=== PATIENT | female | born 1950 | race Caucasian/White ===

== ENCOUNTER 2017-01-15 11:49 | Inpatient (IN) | payer MEDICAID ==
[2017-01-15] MEDS ORDERED: Sodium Chloride 0.9% 1,000 ML IV ONE ×2 (11:59→16:53)
--- NOTE | 2017-01-15 12:21 | EDM.PDOC ---
ED HPI GENERAL MEDICAL PROBLEM - General Chief Complaint: Diabetic Complaint Stated Complaint: HIGH BLOOD SUGAR Time Seen by Provider: 01/15/17 11:51 Source of Information: Reports: Patient, Provider (Ashlyn Echevarria), RN Notes Reviewed History Limitations: Reports: Altered Mental Status - History of Present Illness INITIAL COMMENTS - FREE TEXT/NARRATIVE: Notified by Ashlyn Echevarria that she was sending the patient to the ED. The patient apparently was seen by Ms. Echevarria for the first time today, in order to establish care, however, there were communication difficulties, as the patient has psychiatric issues and has difficulty communicating. The patient is cared for by Dr. Hernández at [facility]. Ms. Echevarria and did some preliminary bloodwork, which demonstrated a blood glucose in the 600s, along with acidosis. The patient states that she has a history of depression and OCD, and takes Effexor nightly. She denies any other medical issues or medications. He states that she was thirsty yesterday, but not today, and denies a recent history of polyuria. She reports that she has been picking at her right second toe, to the point that the nail has been peeled off. The patient states that her last general physical examination was about 5-7 years ago. - Related Data Allergies Allergy/AdvReac Type Severity Reaction Status Date / Time No Known Allergies Allergy Verified 01/15/17 12:26 Home Meds: Home Meds Doxycycline [Vibramycin] 100 mg PO BID 01/15/17 [History] Venlafaxine [Effexor XR] 150 mg PO DAILY 01/15/17 [History] Past Medical History Psychiatric History: Reports: Depression, OCD Endocrine/Metabolic History: Reports: Obesity/BMI 30+ - Past Surgical History HEENT Surgical History: Reports: Tonsillectomy Social & Family History - Tobacco Use Smoking Status *Q: Never Smoker - Alcohol Use Alcohol Use History: Yes Alcohol Use Frequency: Socially - Recreational Drug Use Recreational Drug Use: No - Living Situation & Occupation Living situation: Reports: Single, Alone Occupation: Disabled (psychiatric) ED ROS GENERAL - Review of Systems Review Of Systems: See Below Constitutional: Reports: No Symptoms HEENT: Reports: No Symptoms Respiratory: Reports: No Symptoms Cardiovascular: Reports: No Symptoms Endocrine: Reports: No Symptoms GI/Abdominal: Reports: No Symptoms : Reports: No Symptoms Musculoskeletal: Reports: No Symptoms Skin: Reports: No Symptoms Neurological: Reports: No Symptoms Psychiatric: Reports: No Symptoms Hematologic/Lymphatic: Reports: No Symptoms Immunologic: Reports: No Symptoms ED EXAM GENERAL NO PERIP PULSE - Physical Exam Exam: See Below Exam Limited By: No Limitations General Appearance: Alert, WD/WN, No Apparent Distress Eye Exam: Bilateral Eye: Normal Inspection Ears: Normal External Exam, Hearing Grossly Normal Nose: Normal Inspection, No Blood Throat/Mouth: Normal Inspection, Normal Lips, Normal Voice, No Airway Compromise Head: Atraumatic, Normocephalic Neck: Normal Inspection, Full Range of Motion Respiratory/Chest: No Respiratory Distress, Lungs Clear, Normal Breath Sounds, No Accessory Muscle Use Cardiovascular: Normal Peripheral Pulses, Regular Rate, Rhythm, No Gallop, No JVD, No Murmur, No Rub GI/Abdominal: Normal Bowel Sounds, Soft, Non-Tender, No Organomegaly, No Distention, No Abnormal Bruit, No Mass, Other (Obese) (Female) Exam: Deferred Rectal (Female) Exam: Deferred Back Exam: Normal Inspection, Full Range of Motion, NT Extremities: Normal Range of Motion, No Pedal Edema, Normal Capillary Refill, Other (The toenail of the right second toe appears to be removed, and there appears to be an abrasion with crusty effusion to the distal tip of the toe. The proximal aspect of the toe is erythematous - infection is possible.) Neurological: Alert, CN II-XII Intact, No Motor/Sensory Deficits Psychiatric: Other (Somewhat manic. The patient speaks with a rapid, pressured speech. She is able to answer questions, but her thoughts drift.) Skin Exam: Warm, Dry, Intact, Normal Color, No Rash EKG INTERPRETATION EKG Date: 01/15/17 Time: 12:25 Rhythm: NSR Rate (Beats/Min): 97 [place]: Normal P-Wave: Present QRS: Normal ST-T: Normal QT: Normal Comparison: NA - No Prior EKG Course - Vital Signs Last Recorded V/S: Last Vital Signs Temp 37.1 C 01/15/17 12:05 Pulse 97 01/15/17 12:05 Resp BP 118/87 01/15/17 12:05 Pulse Ox 99 01/15/17 12:05 - Orders/Labs/Meds Orders: Active Orders 24 hr Category Date Time Status EKG Documentation Completion [RC] STAT Care 01/15/17 11:57 Active Chest 2V [CR] Stat Exams 01/15/17 11:57 Taken CULTURE URINE [RM] Stat Lab 01/15/17 14:50 Ordered Insulin Regular, Human [HumuLIN R] 100 unit Med 01/15/17 14:45 Active Sodium Chloride 0.9% [Normal Saline] 99 ml IV TITRATE Sodium Chloride 0.9% [Normal Saline] 1,000 ml Med 01/15/17 16:53 Active IV ONETIME Medication Orders Insulin Human Regular 100 unit (/ Sodium Chloride) 100 mls @ 0 mls/hr IV TITRATE CAMMIE; 0.1 UNITS/KG/HR PRN Reason: Protocol Last Admin: 01/15/17 15:09 Dose: 0.09 units/kg/hr, 9 mls/hr Sodium Chloride (Normal Saline) 1,000 mls @ 999 mls/hr IV ONETIME ONE Stop: 01/15/17 17:53 Labs: Laboratory Tests 01/15/17 01/15/17 01/15/17 Range/Units 12:33 12:54 12:54 WBC 10.67 H (3.98-10.04) K/mm3 RBC 4.89 (3.98-5.22) M/mm3 Hgb 14.9 (11.2-15.7) gm/L Hct 44.3 (34.1-44.9) % MCV 90.6 (79.4-94.8) fl MCH 30.5 (25.6-32.2) pg MCHC 33.6 (32.2-35.5) g/dl RDW Std Deviation 43.7 (36.4-46.3) fL Plt Count 310 (182-369) K/mm3 MPV 10.7 (9.4-12.3) fl Neutrophils % (Manual) 61 H (40-60) % Band Neutrophils % 0 (0-10) % Lymphocytes % (Manual) 34 (20-40) % Atypical Lymphs % 0 % Monocytes % (Manual) 2 (2-10) % Eosinophils % (Manual) 0 L (0.7-5.8) % Basophils % (Manual) 3 H (0.1-1.2) Platelet Estimate Adequate RBC Morph Comment Normal Puncture Site Lt radial ABG pH 7.41 (7.35-7.45) ABG pCO2 25.7 L (35.0-45.0) mmHg ABG pO2 86.0 (80.0-100.0) mmHg ABG HCO3 16.0 L (22.0-26.0) meq/L ABG O2 Saturation 97.8 H (96.0-97.0) % ABG Base Excess -6.6 L (-2-2.0) Marcus Test Positive A-a Gradient 16 mmHg O2 Delivery Device Room air FiO2 21.00 (21.00-100.00) % Sodium 132 L (136-145) mEq/L Potassium 4.1 (3.5-5.1) mEq/L Chloride 98 (98-107) mEq/L Carbon Dioxide 18 L (21-32) mEq/L Anion Gap 20.1 H (5-15) BUN 18 (7-18) mg/dL Creatinine 1.2 H (0.55-1.02) mg/dL Est Cr Clr Drug Dosing 46.06 mL/min Estimated GFR (MDRD) 45 (>60) mL/min BUN/Creatinine Ratio 15.0 (14-18) Glucose 514 H (80-115) mg/dL Lactic Acid (0.4-2.0) mmol/L Calcium 9.5 (8.5-10.1) mg/dL Magnesium 2.0 (1.8-2.4) mg/dl Total Bilirubin 0.3 (0.2-1.0) mg/dL AST 23 (15-37) U/L ALT 46 (14-59) U/L Alkaline Phosphatase 183 H (46-116) U/L Troponin I < 0.017 (0.00-0.056) ng/mL Total Protein 8.2 (6.4-8.2) g/dl Albumin 3.3 L (3.4-5.0) g/dl Globulin 4.9 gm/dL Albumin/Globulin Ratio 0.7 L (1-2) TSH 3rd Generation 3.579 (0.358-3.74) uIU/mL Urine Color (Yellow) Urine Appearance (Clear) Urine pH (5.0-8.0) Ur Specific [place] (1.005-1.030) Urine Protein (Negative) Urine Glucose (UA) (Negative) Urine Ketones (Negative) Urine Occult Blood (Negative) Urine Nitrite (Negative) Urine Bilirubin (Negative) Urine Urobilinogen (0.2-1.0) Ur Leukocyte Esterase (Negative) Urine RBC (0-5) /hpf Urine WBC (0-5) /hpf Ur Epithelial Cells (0-5) /hpf Urine Bacteria (FEW) /hpf Urine Mucus 01/15/17 01/15/17 Range/Units 12:54 14:50 WBC (3.98-10.04) K/mm3 RBC (3.98-5.22) M/mm3 Hgb (11.2-15.7) gm/L Hct (34.1-44.9) % MCV (79.4-94.8) fl MCH (25.6-32.2) pg MCHC (32.2-35.5) g/dl RDW Std Deviation (36.4-46.3) fL Plt Count (182-369) K/mm3 MPV (9.4-12.3) fl Neutrophils % (Manual) (40-60) % Band Neutrophils % (0-10) % Lymphocytes % (Manual) (20-40) % Atypical Lymphs % % Monocytes % (Manual) (2-10) % Eosinophils % (Manual) (0.7-5.8) % Basophils % (Manual) (0.1-1.2) Platelet Estimate RBC Morph Comment Puncture Site ABG pH (7.35-7.45) ABG pCO2 (35.0-45.0) mmHg ABG pO2 (80.0-100.0) mmHg ABG HCO3 (22.0-26.0) meq/L ABG O2 Saturation (96.0-97.0) % ABG Base Excess (-2-2.0) Marcus Test A-a Gradient mmHg O2 Delivery Device FiO2 (21.00-100.00) % Sodium (136-145) mEq/L Potassium (3.5-5.1) mEq/L Chloride (98-107) mEq/L Carbon Dioxide (21-32) mEq/L Anion Gap (5-15) BUN (7-18) mg/dL Creatinine (0.55-1.02) mg/dL Est Cr Clr Drug Dosing mL/min Estimated GFR (MDRD) (>60) mL/min BUN/Creatinine Ratio (14-18) Glucose (80-115) mg/dL Lactic Acid 3.3 H (0.4-2.0) mmol/L Calcium (8.5-10.1) mg/dL Magnesium (1.8-2.4) mg/dl Total Bilirubin (0.2-1.0) mg/dL AST (15-37) U/L ALT (14-59) U/L Alkaline Phosphatase (46-116) U/L Troponin I (0.00-0.056) ng/mL Total Protein (6.4-8.2) g/dl Albumin (3.4-5.0) g/dl Globulin gm/dL Albumin/Globulin Ratio (1-2) TSH 3rd Generation (0.358-3.74) uIU/mL Urine Color Yellow (Yellow) Urine Appearance Clear (Clear) Urine pH 5.5 (5.0-8.0) Ur Specific [place] 1.015 (1.005-1.030) Urine Protein Negative (Negative) Urine Glucose (UA) 2+ H (Negative) Urine Ketones Negative (Negative) Urine Occult Blood Trace-lysed H (Negative) Urine Nitrite Positive H (Negative) Urine Bilirubin Negative (Negative) Urine Urobilinogen 0.2 (0.2-1.0) Ur Leukocyte Esterase Negative (Negative) Urine RBC 5-10 H (0-5) /hpf Urine WBC 0-5 (0-5) /hpf Ur Epithelial Cells 0-5 (0-5) /hpf Urine Bacteria Moderate H (FEW) /hpf Urine Mucus Not Reportable Meds: Medications Generic Name Dose Route Start Last Admin Trade Name Freq PRN Reason Stop Dose Admin Insulin Human Regular 100 unit 100 mls @ 0 mls/hr 01/15/17 14:45 01/15/17 15: 09 / Sodium Chloride IV 0.09 units/kg/hr TITRATE CAMMIE 9 mls/hr Protocol Administration 0.1 UNITS/KG/HR Sodium Chloride 1,000 mls @ 999 mls/hr 01/15/17 16:53 Normal Saline IV 01/15/17 17:53 ONETIME ONE Discontinued Medications Generic Name Dose Route Start Last Admin Trade Name Freq PRN Reason Stop Dose Admin Sodium Chloride 1,000 mls @ 999 mls/hr 01/15/17 11:59 01/15/17 12:48 Normal Saline IV 01/15/17 12:59 999 mls/hr ONETIME ONE Administration Insulin Human Regular 5 unit 01/15/17 14:31 01/15/17 15:08 Humulin R SUBCUT 01/15/17 14:32 5 unit ONETIME STA Administration Protocol - Re-Assessments/Exams Free Text/Narrative Re-Assessment/Exam: 01/15/17 12:36 Two-view chest radiograph appears to be grossly normal. Cardiac silhouette is within normal limits. No pulmonary vascular congestion. No pleural effusions. No focal infiltrate. No pneumothorax. Formal read per the Radiologist pending. 01/15/17 13:37 An Accu-Chek was not ordered, as her blood sugar was in the 600s in Ms. Echevarria 's office, and the upper limit of our Accu-Chek machine is 400. 01/15/17 16:06 The patient's urinalysis is positive for nitrites, 5-10 RBCs, moderate bacteria , but 0-5 WBCs. This is not a clear-cut example of a UTI, however, I believe it would be prudent to treat for a UTI. A urine culture has been ordered, and I will start the patient on oral Bactrim, which should also cover a possible right second toe infection. Case discussed with Dr. Muñiz at 16:03. She is going to check the bed availability in the ICU and get back to us, otherwise, she agrees to admitting the patient. 01/15/17 16:53 An ICU bed is now available. Departure - Departure Time of Disposition: 16:53 Disposition: Admitted As Inpatient 68 Condition: Fair Clinical Impression: DKA (diabetic ketoacidoses), UTI (urinary tract infection), Toe infection - Discharge Information - My Orders Last 24 Hours: My Active Orders 01/15/17 11:57 EKG Documentation Completion [RC] STAT Chest 2V [CR] Stat 01/15/17 14:45 Insulin Regular, Human [HumuLIN R] 100 unit Sodium Chloride 0.9% [Normal Saline] 99 ml IV TITRATE 01/15/17 14:50 CULTURE URINE [RM] Stat 01/15/17 16:53 Sodium Chloride 0.9% [Normal Saline] 1,000 ml IV ONETIME - Assessment/Plan Last 24 Hours: My Active Orders 01/15/17 11:57 EKG Documentation Completion [RC] STAT Chest 2V [CR] Stat 01/15/17 14:45 Insulin Regular, Human [HumuLIN R] 100 unit Sodium Chloride 0.9% [Normal Saline] 99 ml IV TITRATE 01/15/17 14:50 CULTURE URINE [RM] Stat 01/15/17 16:53 Sodium Chloride 0.9% [Normal Saline] 1,000 ml IV ONETIME
[2017-01-15] MEDS ORDERED: Insulin Regular, Human 100 Units/ML 3 ML Vial SUBCUT STA (14:31)
[2017-01-15] MEDS ORDERED: Dextrose 5%-0.9% NaCl 1,000 ML IV SCH (18:45)
--- NOTE | 2017-01-15 19:14 | PCM.HP ---
H&P History of Present Illness - General Date of Service: 01/15/17 Admit Problem/Dx: Admission Diagnosis/Problem Admission Diagnosis/Problem Diabetic ketoacidosis Source of Information: Provider History Limitations: Reports: No Limitations - History of Present Illness Initial Comments - Free Text/Narative: 66 year old female with PMH of depression and OCD was sent from a clinic after her BS was checked, it was over 600 as reported by the clinic. She is not a known diabetic; the patient had been seen in the clinic for initial evaluation. The history is limited from the patient who does not directly answer questions. She is treated at [facility] for depression and OCD. Onset of Symptoms: Reports: Unknown/Unsure Symptom Onset Date: 01/15/17 Duration of Symptoms: Reports: Day(s):, Getting Worse Location: Reports: Generalized Quality: Reports: Same as Previous Episode Improves with: Reports: Medication Worsens with: Reports: None Associated Symptoms: Reports: No Other Symptoms - Related Data Allergies/Adverse Reactions: Allergies Allergy/AdvReac Type Severity Reaction Status Date / Time No Known Allergies Allergy Verified 01/15/17 12:26 Home Medications: Home Meds Doxycycline [Vibramycin] 100 mg PO BID 01/15/17 [History] Venlafaxine [Effexor XR] 150 mg PO DAILY 01/15/17 [History] Past Medical History Psychiatric History: Reports: Depression, OCD Endocrine/Metabolic History: Reports: Obesity/BMI 30+ - Past Surgical History HEENT Surgical History: Reports: Tonsillectomy Social & Family History - Tobacco Use Smoking Status *Q: Never Smoker - Caffeine Use Caffeine Use: Reports: Coffee, Tea - Recreational Drug Use Recreational Drug Use: No - Living Situation & Occupation Living situation: Reports: Single, Alone Occupation: Disabled (psychiatric) H&P Review of Systems - Review of Systems: Review Of Systems: See Below General: Reports: No Symptoms HEENT: Reports: No Symptoms Pulmonary: Reports: No Symptoms Cardiovascular: Reports: No Symptoms Gastrointestinal: Reports: No Symptoms Genitourinary: Reports: No Symptoms Musculoskeletal: Reports: Leg Pain, Foot Pain Skin: Reports: Change in Hair/Nails Psychiatric: Reports: Confusion Neurological: Reports: No Symptoms Hematologic/Lymphatic: Reports: No Symptoms Immunologic: Reports: No Symptoms Exam - Exam Exam: See Below - Vital Signs Vital Signs: Last Vital Signs Temp 37.1 C 01/15/17 17:45 Pulse 86 11/07/17 17:45 Resp 23 H 01/15/17 17:45 BP 131/81 01/15/17 17:45 Pulse Ox 99 01/15/17 17:45 Weight: 89.993 kg - Exam Quality Assessment: DVT Prophylaxis General: Alert, Oriented, Cooperative HEENT: Conjunctiva Clear, Nares Patent, Pupils Equal, Pupils Reactive, PERRLA Neck: Supple, Trachea Midline Lungs: Clear to Auscultation, Normal Respiratory Effort Cardiovascular: Regular Rate, Regular Rhythm GI/Abdominal Exam: Normal Bowel Sounds, Soft, Non-Tender, No Organomegaly, No Distention (Female) Exam: Deferred Rectal (Female) Exam: Deferred Back Exam: Normal Inspection Extremities: Normal Inspection Skin: Warm Neurological: Cranial Nerves Intact Neuro Extensive - Mental Status: Alert Neuro Extensive - Motor, Sensory, Reflexes: CN II-XII Intact Psychiatric: Alert, Normal Affect, Normal Mood - Patient Data Lab Results Last 24 hrs: Laboratory Results - last 24 hr 01/15/17 01/15/17 Range/Units 17:45 18:47 POC Glucose 191 H 132 H (80-115) mg/dL Result Diagrams: 01/15/17 12:54 01/15/17 19:20 *Q Meaningful Use (ADM) - VTE *Q VTE Criteria *Q: - Stroke *Q Stroke Criteria *Q: - AMI *Q AMI Criteria *Q: - Problem List (1) Hyperglycemia, unspecified SNOMED Code(s): 96942815 ICD Code: R73.9 - HYPERGLYCEMIA, UNSPECIFIED Status: Acute Current Visit : Yes (2) OCD (obsessive compulsive disorder) SNOMED Code(s): 882537093 ICD Code: F42.9 - OBSESSIVE-COMPULSIVE DISORDER, UNSPECIFIED Status: Acute Current Visit: Yes (3) Depression SNOMED Code(s): 80938336 ICD Code: F32.9 - MAJOR DEPRESSIVE DISORDER, SINGLE EPISODE, UNSPECIFIED Status: Acute Current Visit: Yes (4) Toe infection SNOMED Code(s): 298001500 ICD Code: L08.9 - LOCAL INFECTION OF THE SKIN AND SUBCUTANEOUS TISSUE, UNSP Status: Acute Current Visit: Yes (5) UTI (urinary tract infection) SNOMED Code(s): 96288316 ICD Code: N39.0 - URINARY TRACT INFECTION, SITE NOT SPECIFIED Status: Acute Current Visit: Yes Problem List Initiated/Reviewed/Updated: Yes Orders Last 24hrs: Active Orders 24 hr Category Date Time Status BMP [BASIC METABOLIC PANEL,BMP] [CHEM] Routine Lab 01/15/17 19:00 Ordered BMP [BASIC METABOLIC PANEL,BMP] [CHEM] Routine Lab 01/16/17 00:00 Ordered Dextrose 5%-0.9% NaCl [Dextrose 5%-Normal Saline] 1,000 Med 01/15/17 18:45 Active ml IV ASDIRECTED Insulin Regular, Human [HumuLIN R] 100 unit Med 01/15/17 17:49 Active Sodium Chloride 0.9% [Normal Saline] 99 ml IV TITRATE Venlafaxine [Effexor XR] Med 01/16/17 09:00 Active 150 mg PO DAILY Medication Orders Insulin Human Regular 100 unit (/ Sodium Chloride) 100 mls @ 0 mls/hr IV TITRATE CAMMIE; 0.1 UNITS/KG/HR PRN Reason: Protocol Last Titration: 01/15/17 18:47 Dose: 0.01 units/kg/hr, 1 mls/hr Admin: 01/15/17 17:56 Dose: 0.02 units/kg/hr, 2 mls/hr Dextrose/Sodium Chloride (Dextrose 5%-Normal Saline) 1,000 mls @ 150 mls/hr IV ASDIRECTED CAMMIE Venlafaxine HCl (Effexor Xr) 150 mg PO DAILY CAMMIE Assessment/Plan Comment:: Impression: DKA Query new onset diabetes mellitus Lipid status, unknown Psychiatric illness, unspecified; reportedly depression/OCD Query superficial skin infection, right great toe Query AUTI Plan: DKA protocol Rocephin DM education if possible Disposition, TBD. SW/PT/OT DVT/GI prophylaxis
[2017-01-15] MEDS ORDERED: LORazepam 2 MG/ML MDV IVPUSH PRN (19:19)
[2017-01-15] MEDS: Sodium Chloride 0.9% 1,000 ML IV SCH (20:03)
[2017-01-15] MEDS: cefTRIAXone 1 GM in Sodium Chloride 0.9% 100 ML IV SCH (20:03)
[2017-01-15] MEDS: Insulin Aspart 100 Units/ML 3 ML Pen SUBCUT SCH ×2 (20:03→21:16)
[2017-01-16] MEDS: Sodium Chloride 0.9% 1,000 ML IV SCH (06:16)
[2017-01-16] MEDS: Insulin Aspart 100 Units/ML 3 ML Pen SUBCUT SCH ×4 (06:24→21:48)
--- NOTE | 2017-01-16 07:38 | CR ---
Chest: Two views of the chest were obtained. Comparison: No previous study. Heart size and mediastinum are normal. Lungs are clear. Minimal degenerative spurring is seen within the spine. Impression: 1. Nothing acute is identified on two-view chest x-ray. Diagnostic code #2
[2017-01-16] MEDS: Venlafaxine 75 MG Cap.ER PO SCH (08:42)
[2017-01-16] MEDS ORDERED: Enoxaparin 30 MG/0.3 ML Syringe SUBCUT SCH (09:00)
--- NOTE | 2017-01-16 11:56 | PCM.PN ---
- General Info Date of Service: 01/16/17 Admission Dx/Problem (Free Text): Admission Diagnosis/Problem Admission Diagnosis/Problem Diabetic ketoacidosis Emily is seen this afternoon. Feeling "better". Denies complaints. No pain, SOB , CP, abd pain, n/v/d. She just ambulated multiple loops with nursing, tolerated well. CDE met with her earlier today which she found very helpful. Functional Status: Reports: Pain Controlled, Tolerating Diet, Ambulating, Urinating. Denies: New Symptoms - Review of Systems General: Reports: No Symptoms HEENT: Reports: No Symptoms Pulmonary: Reports: No Symptoms Cardiovascular: Reports: No Symptoms Gastrointestinal: Reports: No Symptoms Genitourinary: Reports: No Symptoms Musculoskeletal: Reports: No Symptoms Neurological: Reports: No Symptoms - Patient Data Vitals - Most Recent: Last Vital Signs Temp 97.3 F 01/16/17 09:00 Pulse 86 01/15/17 17:45 Resp 15 01/16/17 09:00 BP 141/79 H 01/16/17 09:00 Pulse Ox 97 01/16/17 09:00 Weight - Most Recent: 200 lb 3.2 oz I&O - Last 24 Hours: Intake & Output 01/15/17 01/16/17 01/16/17 22:59 06:59 14:59 Intake Total 2466 Output Total 600 Balance 1866 Lab Results Last 24 Hours: Laboratory Results - last 24 hr 01/15/17 01/15/17 01/15/17 Range/Units 17:45 18:47 19:20 WBC (3.98-10.04) K/mm3 RBC (3.98-5.22) M/mm3 Hgb (11.2-15.7) gm/L Hct (34.1-44.9) % MCV (79.4-94.8) fl MCH (25.6-32.2) pg MCHC (32.2-35.5) g/dl RDW Std Deviation (36.4-46.3) fL Plt Count (182-369) K/mm3 MPV (9.4-12.3) fl Neut % (Auto) (34.0-71.1) % Lymph % (Auto) (19.3-51.7) % Leake % (Auto) (4.7-12.5) % Eos % (Auto) (0.7-5.8) Baso % (Auto) (0.1-1.2) % Neut # (Auto) (1.56-6.13) K/mm3 Lymph # (Auto) (1.18-3.74) K/mm3 Leake # (Auto) (0.24-0.36) K/mm3 Eos # (Auto) (0.04-0.36) K/mm3 Baso # (Auto) (0.01-0.08) K/mm3 Sodium 141 (136-145) mEq/L Potassium 3.8 (3.5-5.1) mEq/L Chloride 108 H (98-107) mEq/L Carbon Dioxide 25 (21-32) mEq/L Anion Gap 11.8 (5-15) BUN 16 (7-18) mg/dL Creatinine 0.8 (0.55-1.02) mg/dL Est Cr Clr Drug Dosing 69.09 mL/min Estimated GFR (MDRD) > 60 (>60) mL/min BUN/Creatinine Ratio 20.0 H (14-18) Glucose 133 H (80-115) mg/dL POC Glucose 191 H 132 H (80-115) mg/dL Hemoglobin A1c (4.50-6.20) % Calcium 9.1 (8.5-10.1) mg/dL Magnesium (1.8-2.4) mg/dl Triglycerides (<150) mg/dL Cholesterol (<200) mg/dL LDL Cholesterol Direct (<100) mg/dL HDL Cholesterol (40-59) mg/dL 01/15/17 01/16/17 01/16/17 Range/Units 21:11 06:22 06:25 WBC 10.48 H (3.98-10.04) K/mm3 RBC 4.53 (3.98-5.22) M/mm3 Hgb 13.9 (11.2-15.7) gm/L Hct 41.7 (34.1-44.9) % MCV 92.1 (79.4-94.8) fl MCH 30.7 (25.6-32.2) pg MCHC 33.3 (32.2-35.5) g/dl RDW Std Deviation 45.4 (36.4-46.3) fL Plt Count 279 (182-369) K/mm3 MPV 10.8 (9.4-12.3) fl Neut % (Auto) 51.4 (34.0-71.1) % Lymph % (Auto) 41.6 (19.3-51.7) % Leake % (Auto) 5.5 (4.7-12.5) % Eos % (Auto) 1.1 (0.7-5.8) Baso % (Auto) 0.2 (0.1-1.2) % Neut # (Auto) 5.38 (1.56-6.13) K/mm3 Lymph # (Auto) 4.36 H (1.18-3.74) K/mm3 Leake # (Auto) 0.58 H (0.24-0.36) K/mm3 Eos # (Auto) 0.12 (0.04-0.36) K/mm3 Baso # (Auto) 0.02 (0.01-0.08) K/mm3 Sodium (136-145) mEq/L Potassium (3.5-5.1) mEq/L Chloride (98-107) mEq/L Carbon Dioxide (21-32) mEq/L Anion Gap (5-15) BUN (7-18) mg/dL Creatinine (0.55-1.02) mg/dL Est Cr Clr Drug Dosing mL/min Estimated GFR (MDRD) (>60) mL/min BUN/Creatinine Ratio (14-18) Glucose (80-115) mg/dL POC Glucose 157 H 189 H (80-115) mg/dL Hemoglobin A1c (4.50-6.20) % Calcium (8.5-10.1) mg/dL Magnesium (1.8-2.4) mg/dl Triglycerides (<150) mg/dL Cholesterol (<200) mg/dL LDL Cholesterol Direct (<100) mg/dL HDL Cholesterol (40-59) mg/dL 01/16/17 01/16/17 Range/Units 06:25 06:25 WBC (3.98-10.04) K/mm3 RBC (3.98-5.22) M/mm3 Hgb (11.2-15.7) gm/L Hct (34.1-44.9) % MCV (79.4-94.8) fl MCH (25.6-32.2) pg MCHC (32.2-35.5) g/dl RDW Std Deviation (36.4-46.3) fL Plt Count (182-369) K/mm3 MPV (9.4-12.3) fl Neut % (Auto) (34.0-71.1) % Lymph % (Auto) (19.3-51.7) % Leake % (Auto) (4.7-12.5) % Eos % (Auto) (0.7-5.8) Baso % (Auto) (0.1-1.2) % Neut # (Auto) (1.56-6.13) K/mm3 Lymph # (Auto) (1.18-3.74) K/mm3 Leake # (Auto) (0.24-0.36) K/mm3 Eos # (Auto) (0.04-0.36) K/mm3 Baso # (Auto) (0.01-0.08) K/mm3 Sodium 140 (136-145) mEq/L Potassium 3.6 (3.5-5.1) mEq/L Chloride 106 (98-107) mEq/L Carbon Dioxide 21 (21-32) mEq/L Anion Gap 16.6 H (5-15) BUN 16 (7-18) mg/dL Creatinine 0.7 (0.55-1.02) mg/dL Est Cr Clr Drug Dosing 78.95 mL/min Estimated GFR (MDRD) > 60 (>60) mL/min BUN/Creatinine Ratio 22.9 H (14-18) Glucose 171 H (80-115) mg/dL POC Glucose (80-115) mg/dL Hemoglobin A1c 12.30 H (4.50-6.20) % Calcium 8.5 (8.5-10.1) mg/dL Magnesium 1.9 (1.8-2.4) mg/dl Triglycerides 406 H (<150) mg/dL Cholesterol 269 H (<200) mg/dL LDL Cholesterol Direct 160 H* (<100) mg/dL HDL Cholesterol 34.0 L (40-59) mg/dL Med Orders - Current: Current Medications Enoxaparin Sodium (Lovenox) 40 mg SUBCUT DAILY [facility] Last Admin: 01/16/17 08:42 Dose: 40 mg Ceftriaxone Sodium 1 gm/ (Sodium Chloride) 100 mls @ 200 mls/hr IV Q24H [facility]MI[facility] Last Admin: 01/15/17 20:03 Dose: 200 mls/hr Insulin Aspart (Novolog) 0 unit SUBCUT QIDACANDBED [facility]MIE PRN Reason: Protocol Last Admin: 01/16/17 06:24 Dose: Not Given Lisinopril (Prinivil) 5 mg PO DAILY [facility] Lorazepam (Ativan) 1 mg IVPUSH BEDTIME PRN PRN Reason: Insomnia Metformin HCl (Glucophage) 500 mg PO BIDMEALS [facility]MI[facility] Simvastatin (Zocor) 10 mg PO BEDTIME [facility] Venlafaxine HCl (Effexor Xr) 150 mg PO DAILY [facility] Last Admin: 01/16/17 08:42 Dose: 150 mg Discontinued Medications Sodium Chloride (Normal Saline) 1,000 mls @ 999 mls/hr IV ONETIME ONE Stop: 01/15/17 12:59 Last Admin: 01/15/17 12:48 Dose: 999 mls/hr Insulin Human Regular 100 unit (/ Sodium Chloride) 100 mls @ 0 mls/hr IV TITRATE [facility]MIE; 0.1 UNITS/KG/HR PRN Reason: Protocol Last Admin: 01/15/17 15:09 Dose: 0.09 units/kg/hr, 9 mls/hr Sodium Chloride (Normal Saline) 1,000 mls @ 999 mls/hr IV ONETIME ONE Stop: 01/15/17 17:53 Last Admin: 01/15/17 17:25 Dose: 999 mls/hr Insulin Human Regular 100 unit (/ Sodium Chloride) 100 mls @ 0 mls/hr IV TITRATE CAMMIE; 0.1 UNITS/KG/HR PRN Reason: Protocol Last Titration: 01/15/17 18:47 Dose: 0.01 units/kg/hr, 1 mls/hr Dextrose/Sodium Chloride (Dextrose 5%-Normal Saline) 1,000 mls @ 150 mls/hr IV ASDIRECTED CAMMIE Last Admin: 01/15/17 18:40 Dose: 150 mls/hr Sodium Chloride (Normal Saline) 1,000 mls @ 150 mls/hr IV ASDIRECTED [facility]MIE Last Admin: 01/16/17 06:16 Dose: 150 mls/hr Insulin Human Regular (Humulin R) 5 unit SUBCUT ONETIME STA PRN Reason: Protocol Stop: 01/15/17 14:32 Last Admin: 01/15/17 15:08 Dose: 5 unit - Exam Quality Assessment: DVT Prophylaxis General: Alert, Oriented, Cooperative, No Acute Distress HEENT: Pupils Equal, EOMI, Mucous Membr. Moist/[place] Neck: Supple Lungs: Clear to Auscultation, Normal Respiratory Effort Cardiovascular: Regular Rate, Regular Rhythm GI/Abdominal Exam: Normal Bowel Sounds, Soft, Non-Tender (Female) Exam: Deferred Extremities: No Pedal Edema, Normal Capillary Refill Peripheral Pulses: 1+: Dorsalis Pedis (L), Dorsalis Pedis (R) Neurological: No New Focal Deficit Psy/Mental Status: Alert, Other (speech is with repetative tick at times every other word, making some conversation difficult to follow- this is her usual baseline. ) - Problem List & Annotations (1) DKA (diabetic ketoacidoses) SNOMED Code(s): 081402815 Code(s): E13.10 - OTH DIABETES MELLITUS WITH KETOACIDOSIS WITHOUT COMA Status: Resolved Priority: High Current Visit: Yes Qualifiers: Diabetes mellitus type: type 2 (2) Uncontrolled type 2 diabetes mellitus SNOMED Code(s): 08186833 Code(s): E11.65 - TYPE 2 DIABETES MELLITUS WITH HYPERGLYCEMIA Status: Acute Priority: High Current Visit: Yes Qualifiers: Diabetes mellitus complication status: with hyperglycemia Diabetes mellitus watermelon inspector insulin use: without watermelon inspector use Qualified Code(s): E11.65 - Type 2 diabetes mellitus with hyperglycemia (3) UTI (urinary tract infection) SNOMED Code(s): 43987399 Code(s): N39.0 - URINARY TRACT INFECTION, SITE NOT SPECIFIED Status: Acute Priority: High Current Visit: Yes Qualifiers: Urinary tract infection type: acute cystitis Hematuria presence: without hematuria Qualified Code(s): N30.00 - Acute cystitis without hematuria (4) Hyperlipidemia SNOMED Code(s): 51910445 Code(s): E78.5 - HYPERLIPIDEMIA, UNSPECIFIED Status: Acute Priority: High Current Visit: Yes Qualifiers: Hyperlipidemia type: pure hyperglyceridemia Qualified Code(s): E78.1 - Pure hyperglyceridemia (5) Depression SNOMED Code(s): 15497632 Code(s): F32.9 - MAJOR DEPRESSIVE DISORDER, SINGLE EPISODE, UNSPECIFIED Status: Chronic Priority: Medium Current Visit: Yes Qualifiers: Depression Type: unspecified Qualified Code(s): F32.9 - Major depressive disorder, single episode, unspecified (6) OCD (obsessive compulsive disorder) SNOMED Code(s): 386109650 Code(s): F42.9 - OBSESSIVE-COMPULSIVE DISORDER, UNSPECIFIED Status: Chronic Priority: Medium Current Visit: No Qualifiers: Obsessive-compulsive disorder type: unspecified Qualified Code(s): F42.9 - Obsessive-compulsive disorder, unspecified - Problem List Review Problem List Initiated/Reviewed/Updated: Yes - My Orders Last 24 Hours: My Active Orders 01/16/17 07:23 Admission Status [Patient Status] [ADT] Routine 01/16/17 11:43 Ambulate [RC] QID 01/16/17 11:45 Aspirin 81 mg PO DAILY Lisinopril [Prinivil] 5 mg PO DAILY Simvastatin [Zocor] 10 mg PO BEDTIME metFORMIN [Glucophage] 500 mg PO BIDMEALS - Plan Plan:: I/P: DKA- resolved; in setting of newly dx type 2 DM, uncontrolled -Off of insulin drip, eating and tolerating meals, fluids DC'd -A1C 12.3 -CDE -Accucheck QID/AC&HS, SSI coverage -Metformin BID with titration to maximum dosing of 1,000mg BID -Statin, ACEI, baby ASA -F/up with PCP and CDE within one week of discharge Hyperlipidemia -Start Statin QHS UTI -GNR per UC, no ID or sensitivity as of yet- awaiting results -Cont Rocephin IV QD Chronic: Longstanding mental illness- reported depression/OCD- Cont home meds -Patient has field case manager, Delgado, that will help with meds and appointments after discharge Other: DVT prophylax/GI prophylax CM/SW for assist with DC planning Ambulate QID Likely DC tomorrow if stable and continues to do well. PCP is RICH Ramirez at [facility] in [place]. Patient is Full Code status.
[2017-01-16] MEDS: metFORMIN 500 MG Tab PO SCH ×2 (12:14→17:20)
[2017-01-16] MEDS: Lisinopril 5 MG Tab PO SCH (12:14)
[2017-01-16] MEDS: Famotidine 20 MG Tab PO SCH (12:14)
[2017-01-16] MEDS: Aspirin 81 MG Tab.Chew PO SCH (12:15)
[2017-01-16] MEDS: cefTRIAXone 1 GM in Sodium Chloride 0.9% 100 ML IV SCH (19:27)
[2017-01-16] MEDS ORDERED: Simvastatin 10 MG Tab PO SCH (21:00)
--- NOTE | 2017-01-17 07:02 | PCM.DCSUM1 ---
Discharge Summary - Hospital Course Free Text/Narrative:: 66 year old female with PMH of depression and OCD was sent from a clinic to ED after her BS was checked, it was over 600 as reported by the clinic. She is not a known diabetic; the patient had been seen in the clinic for initial evaluation with RICH Ramirez, for suspected diabetes, increased thirst. The history is limited from the patient who does not directly answer questions. She is treated at [facility] for depression and OCD. She has not seen any other medical provider, aside from Dr. Hernández for mental health issues, in 7-10 years. She does have a caser in through [facility], who is very involved with her care. ED evaluation found patient to be in DKA. Hospitalist service was consulted for admission. She was initially started on insulin drip and DKA protocol in the ICU. The following day AG had closed and DKA resolved. She was eating and drinking with no return of DKA state. She was maintained on s/s novolog, metformin was started. She was seen by CDE and automatic profile shaper operator. She was tolerating meals well, ambulating. She is not going to be able to manage insulin at this time; will start just metformin and have her follow with SELENE Santoyo with [facility] here in [place]. She is very agreeable to this. She was also started on ASA for CV protection with DM, Lisinopril 5mg for renal protection and simvastatin for HLD. A1C was found to be 12.3 She will be discharged home today with [employer] Officer[employer] to assist with medications and appointments. - Discharge Data Discharge Date: 01/17/17 Discharge Disposition: Home, Self-Care 01 Condition: Good - Discharge Diagnosis/Problem(s) (1) DKA (diabetic ketoacidoses) SNOMED Code(s): 536668465 ICD Code: E13.10 - OTH DIABETES MELLITUS WITH KETOACIDOSIS WITHOUT COMA Status: Resolved Priority: High Current Visit: Yes Qualifiers: Diabetes mellitus type: type 2 (2) Uncontrolled type 2 diabetes mellitus SNOMED Code(s): 09808995 ICD Code: E11.65 - TYPE 2 DIABETES MELLITUS WITH HYPERGLYCEMIA Status: Acute Priority: High Current Visit: Yes Qualifiers: Diabetes mellitus complication status: with hyperglycemia Diabetes mellitus shelter insulin use: without terminal supervisor use Qualified Code(s): E11.65 - Type 2 diabetes mellitus with hyperglycemia (3) UTI (urinary tract infection) SNOMED Code(s): 84418099 ICD Code: N39.0 - URINARY TRACT INFECTION, SITE NOT SPECIFIED Status: Acute Priority: High Current Visit: Yes Qualifiers: Urinary tract infection type: acute cystitis Hematuria presence: without hematuria Qualified Code(s): N30.00 - Acute cystitis without hematuria (4) Hyperlipidemia SNOMED Code(s): 93477539 ICD Code: E78.5 - HYPERLIPIDEMIA, UNSPECIFIED Status: Acute Priority: High Current Visit: Yes Qualifiers: Hyperlipidemia type: pure hyperglyceridemia Qualified Code(s): E78.1 - Pure hyperglyceridemia (5) Depression SNOMED Code(s): 54557323 ICD Code: F32.9 - MAJOR DEPRESSIVE DISORDER, SINGLE EPISODE, UNSPECIFIED Status: Chronic Priority: Medium Current Visit: Yes Qualifiers: Depression Type: unspecified Qualified Code(s): F32.9 - Major depressive disorder, single episode, unspecified (6) OCD (obsessive compulsive disorder) SNOMED Code(s): 981264984 ICD Code: F42.9 - OBSESSIVE-COMPULSIVE DISORDER, UNSPECIFIED Status: Chronic Priority: Medium Current Visit: No Qualifiers: Obsessive-compulsive disorder type: unspecified Qualified Code(s): F42.9 - Obsessive-compulsive disorder, unspecified - Patient Summary/Data Operative Procedure(s) Performed: None Complications: None Consults: Consultations 01/15/17 19:20 Consult to Occupational Therapy [OT Evaluation and Treatment] [CONS] Routine Consult to Physical Therapy [PT Evaluation and Treatment] [CONS] Routine 01/15/17 19:21 Consult to Derivatives Trader [Consult to Diabetic Nurse Specialist] [CONS] Routine 01/16/17 08:00 Consult to Inspector Tool [CONS] Routine Labs Pending at D/C: None Recommended Follow-up Testing/Procedures: Patient DC instructions: Follow up with RICH Ramirez and Brittney Engel, Engine Repair Supervisor within one week of discharge Check your blood sugars before meals and at bedtime, record and bring record with you to above follow ups and to all doctor visits Exercise, 150 minutes per week total is goal Push fluids, lots of water, avoid any sugary drinks Diabetic diet Take all medications as prescribed Planned Operative Procedure(s) after DC: None Hospital Course: As above - Patient Instructions Diet: Heart Healthy Diet, Drink 8-10+ Glasses/Day, Diabetic Diet Activity: As Tolerated (exercise 150min per week) Driving: Do Not Drive Showering/Bathing: May Shower Notify Provider of: Fever, Increased Pain, Nausea and/or Vomiting - Discharge Plan Prescriptions/Med Rec: Aspirin 81 mg PO DAILY #30 tab.chew Cephalexin [Keflex] 500 mg PO TID #15 capsule Famotidine [Pepcid] 20 mg PO DAILY #30 tablet Lisinopril [Prinivil] 5 mg PO DAILY #30 tablet metFORMIN [Glucophage] 1,000 mg PO BIDMEALS #60 tablet Simvastatin [Zocor] 10 mg PO BEDTIME #30 tablet Home Medications: Home Meds Venlafaxine [Effexor XR] 150 mg PO DAILY 01/15/17 [History] Aspirin 81 mg PO DAILY #30 tab.chew 01/17/17 [Rx] Cephalexin [Keflex] 500 mg PO TID #15 capsule 01/17/17 [Rx] Famotidine [Pepcid] 20 mg PO DAILY #30 tablet 01/17/17 [Rx] Lisinopril [Prinivil] 5 mg PO DAILY #30 tablet 01/17/17 [Rx] Simvastatin [Zocor] 10 mg PO BEDTIME #30 tablet 01/17/17 [Rx] metFORMIN [Glucophage] 1,000 mg PO BIDMEALS #60 tablet 01/17/17 [Rx] Patient Handouts: Type 2 Diabetes Mellitus, Adult, Cholesterol, [id number]-[id number], Diabetes and Foot Care, Heart Disease Prevention, Diabetes and Sick Day Management, Hypoglycemia, Hyperglycemia, [id number], Food Choices to Lower Your Triglycerides, Diabetes Mellitus and Food Referrals: Maria Luisa Echevarria FRAUD EXAMINER [Primary Care Provider] - - Discharge Summary/Plan Comment DC Time >30 min.: Yes (45 min) - General Info Date of Service: 01/17/17 Admission Dx/Problem (Free Text: Admission Diagnosis/Problem Admission Diagnosis/Problem Diabetic ketoacidosis Emily is seen this this morning. Slept well. No complaints this morning. No pain, SOB, CP, abd pain, n/v/d. She is up and ambulatory, eating and tolerating meals well. Blood sugars are stable. Plans for DC home today. Functional Status: Reports: Pain Controlled, Tolerating Diet, Ambulating, Urinating. Denies: New Symptoms - Review of Systems General: Reports: No Symptoms HEENT: Reports: No Symptoms Pulmonary: Reports: No Symptoms Cardiovascular: Reports: No Symptoms Gastrointestinal: Reports: No Symptoms Genitourinary: Reports: No Symptoms Musculoskeletal: Reports: No Symptoms Neurological: Reports: No Symptoms - Patient Data Vitals - Most Recent: Last Vital Signs Temp 98.8 F 01/17/17 03:56 Pulse 83 01/17/17 03:56 Resp 14 01/17/17 03:56 BP 138/72 01/17/17 03:56 Pulse Ox 98 01/17/17 03:56 Weight - Most Recent: 200 lb 3.2 oz I&O - Last 24 hours: Intake & Output 01/16/17 01/16/17 01/17/17 14:59 22:59 06:59 Intake Total 240 620 500 Balance 240 620 500 Lab Results - Last 24 hrs: Laboratory Results - last 24 hr 01/16/17 01/16/17 01/16/17 Range/Units 06:25 06:25 06:25 WBC 10.48 H (3.98-10.04) K/mm3 RBC 4.53 (3.98-5.22) M/mm3 Hgb 13.9 (11.2-15.7) gm/L Hct 41.7 (34.1-44.9) % MCV 92.1 (79.4-94.8) fl MCH 30.7 (25.6-32.2) pg MCHC 33.3 (32.2-35.5) g/dl RDW Std Deviation 45.4 (36.4-46.3) fL Plt Count 279 (182-369) K/mm3 MPV 10.8 (9.4-12.3) fl Neut % (Auto) 51.4 (34.0-71.1) % Lymph % (Auto) 41.6 (19.3-51.7) % Hughes % (Auto) 5.5 (4.7-12.5) % Eos % (Auto) 1.1 (0.7-5.8) Baso % (Auto) 0.2 (0.1-1.2) % Neut # (Auto) 5.38 (1.56-6.13) K/mm3 Lymph # (Auto) 4.36 H (1.18-3.74) K/mm3 Hughes # (Auto) 0.58 H (0.24-0.36) K/mm3 Eos # (Auto) 0.12 (0.04-0.36) K/mm3 Baso # (Auto) 0.02 (0.01-0.08) K/mm3 Sodium 140 (136-145) mEq/L Potassium 3.6 (3.5-5.1) mEq/L Chloride 106 (98-107) mEq/L Carbon Dioxide 21 (21-32) mEq/L Anion Gap 16.6 H (5-15) BUN 16 (7-18) mg/dL Creatinine 0.7 (0.55-1.02) mg/dL Est Cr Clr Drug Dosing 78.95 mL/min Estimated GFR (MDRD) > 60 (>60) mL/min BUN/Creatinine Ratio 22.9 H (14-18) Glucose 171 H (80-115) mg/dL POC Glucose (80-115) mg/dL Hemoglobin A1c 12.30 H (4.50-6.20) % Calcium 8.5 (8.5-10.1) mg/dL Magnesium 1.9 (1.8-2.4) mg/dl Triglycerides 406 H (<150) mg/dL Cholesterol 269 H (<200) mg/dL LDL Cholesterol Direct 160 H* (<100) mg/dL HDL Cholesterol 34.0 L (40-59) mg/dL 01/16/17 01/16/17 01/17/17 Range/Units 17:01 21:28 06:07 WBC 8.14 (3.98-10.04) K/mm3 RBC 4.47 (3.98-5.22) M/mm3 Hgb 13.9 (11.2-15.7) gm/L Hct 41.4 (34.1-44.9) % MCV 92.6 (79.4-94.8) fl MCH 31.1 (25.6-32.2) pg MCHC 33.6 (32.2-35.5) g/dl RDW Std Deviation 44.8 (36.4-46.3) fL Plt Count 252 (182-369) K/mm3 MPV 10.6 (9.4-12.3) fl Neut % (Auto) 49.9 (34.0-71.1) % Lymph % (Auto) 41.5 (19.3-51.7) % Hughes % (Auto) 7.2 (4.7-12.5) % Eos % (Auto) 1.0 (0.7-5.8) Baso % (Auto) 0.2 (0.1-1.2) % Neut # (Auto) 4.05 (1.56-6.13) K/mm3 Lymph # (Auto) 3.38 (1.18-3.74) K/mm3 Hughes # (Auto) 0.59 H (0.24-0.36) K/mm3 Eos # (Auto) 0.08 (0.04-0.36) K/mm3 Baso # (Auto) 0.02 (0.01-0.08) K/mm3 Sodium (136-145) mEq/L Potassium (3.5-5.1) mEq/L Chloride (98-107) mEq/L Carbon Dioxide (21-32) mEq/L Anion Gap (5-15) BUN (7-18) mg/dL Creatinine (0.55-1.02) mg/dL Est Cr Clr Drug Dosing mL/min Estimated GFR (MDRD) (>60) mL/min BUN/Creatinine Ratio (14-18) Glucose (80-115) mg/dL POC Glucose 312 H 290 H (80-115) mg/dL Hemoglobin A1c (4.50-6.20) % Calcium (8.5-10.1) mg/dL Magnesium (1.8-2.4) mg/dl Triglycerides (<150) mg/dL Cholesterol (<200) mg/dL LDL Cholesterol Direct (<100) mg/dL HDL Cholesterol (40-59) mg/dL 01/17/17 Range/Units 06:53 WBC (3.98-10.04) K/mm3 RBC (3.98-5.22) M/mm3 Hgb (11.2-15.7) gm/L Hct (34.1-44.9) % MCV (79.4-94.8) fl MCH (25.6-32.2) pg MCHC (32.2-35.5) g/dl RDW Std Deviation (36.4-46.3) fL Plt Count (182-369) K/mm3 MPV (9.4-12.3) fl Neut % (Auto) (34.0-71.1) % Lymph % (Auto) (19.3-51.7) % Hughes % (Auto) (4.7-12.5) % Eos % (Auto) (0.7-5.8) Baso % (Auto) (0.1-1.2) % Neut # (Auto) (1.56-6.13) K/mm3 Lymph # (Auto) (1.18-3.74) K/mm3 Hughes # (Auto) (0.24-0.36) K/mm3 Eos # (Auto) (0.04-0.36) K/mm3 Baso # (Auto) (0.01-0.08) K/mm3 Sodium (136-145) mEq/L Potassium (3.5-5.1) mEq/L Chloride (98-107) mEq/L Carbon Dioxide (21-32) mEq/L Anion Gap (5-15) BUN (7-18) mg/dL Creatinine (0.55-1.02) mg/dL Est Cr Clr Drug Dosing mL/min Estimated GFR (MDRD) (>60) mL/min BUN/Creatinine Ratio (14-18) Glucose (80-115) mg/dL POC Glucose 266 H (80-115) mg/dL Hemoglobin A1c (4.50-6.20) % Calcium (8.5-10.1) mg/dL Magnesium (1.8-2.4) mg/dl Triglycerides (<150) mg/dL Cholesterol (<200) mg/dL LDL Cholesterol Direct (<100) mg/dL HDL Cholesterol (40-59) mg/dL Med Orders - Current: Current Medications Aspirin (Aspirin) 81 mg PO DAILY [facility] Last Admin: 01/16/17 12:15 Dose: 81 mg Enoxaparin Sodium (Lovenox) 40 mg SUBCUT DAILY [facility] Last Admin: 01/16/17 08:42 Dose: 40 mg Famotidine (Pepcid) 20 mg PO DAILY [facility] Last Admin: 01/16/17 12:14 Dose: 20 mg Ceftriaxone Sodium 1 gm/ (Sodium Chloride) 100 mls @ 200 mls/hr IV Q24H [facility] Last Admin: 01/16/17 19:27 Dose: 200 mls/hr Insulin Aspart (Novolog) 0 unit SUBCUT QIDACANDBED CAMMIE PRN Reason: Protocol Last Admin: 01/16/17 21:48 Dose: 3 units Lisinopril (Prinivil) 5 mg PO DAILY [facility] Last Admin: 01/16/17 12:14 Dose: 5 mg Lorazepam (Ativan) 1 mg IVPUSH BEDTIME PRN PRN Reason: Insomnia Metformin HCl (Glucophage) 500 mg PO BIDMEALS [facility] Last Admin: 01/16/17 17:20 Dose: 500 mg Simvastatin (Zocor) 10 mg PO BEDTIME [facility] Last Admin: 01/16/17 21:47 Dose: 10 mg Venlafaxine HCl (Effexor Xr) 150 mg PO DAILY [facility] Last Admin: 01/16/17 08:42 Dose: 150 mg Discontinued Medications Sodium Chloride (Normal Saline) 1,000 mls @ 999 mls/hr IV ONETIME ONE Stop: 01/15/17 12:59 Last Admin: 01/15/17 12:48 Dose: 999 mls/hr Insulin Human Regular 100 unit (/ Sodium Chloride) 100 mls @ 0 mls/hr IV TITRATE CAMMIE; 0.1 UNITS/KG/HR PRN Reason: Protocol Last Admin: 01/15/17 15:09 Dose: 0.09 units/kg/hr, 9 mls/hr Sodium Chloride (Normal Saline) 1,000 mls @ 999 mls/hr IV ONETIME ONE Stop: 01/15/17 17:53 Last Admin: 01/15/17 17:25 Dose: 999 mls/hr Insulin Human Regular 100 unit (/ Sodium Chloride) 100 mls @ 0 mls/hr IV TITRATE CAMMIE; 0.1 UNITS/KG/HR PRN Reason: Protocol Last Titration: 01/15/17 18:47 Dose: 0.01 units/kg/hr, 1 mls/hr Dextrose/Sodium Chloride (Dextrose 5%-Normal Saline) 1,000 mls @ 150 mls/hr IV ASDIRECTED CAMMIE Last Admin: 01/15/17 18:40 Dose: 150 mls/hr Sodium Chloride (Normal Saline) 1,000 mls @ 150 mls/hr IV ASDIRECTED [facility] Last Admin: 01/16/17 06:16 Dose: 150 mls/hr Insulin Human Regular (Humulin R) 5 unit SUBCUT ONETIME STA PRN Reason: Protocol Stop: 01/15/17 14:32 Last Admin: 01/15/17 15:08 Dose: 5 unit - Exam Quality Assessment: Reports: DVT Prophylaxis General: Reports: Alert, Oriented, Cooperative, No Acute Distress HEENT: Reports: Pupils Equal, EOMI, Mucous Membr. Moist/[place] Neck: Reports: Supple Lungs: Reports: Clear to Auscultation, Normal Respiratory Effort Cardiovascular: Reports: Regular Rate, Regular Rhythm, No Murmurs GI/Abdominal Exam: Normal Bowel Sounds, Soft, Non-Tender (Female) Exam: Deferred Rectal (Female) Exam: Deferred Extremities: Normal Inspection, No Pedal Edema, Normal Capillary Refill Neurological: Reports: No New Focal Deficit Psy/Mental Status: Reports: Alert, Other (speech with repetative phrase every other word or every few words,; does make conversation difficult to follow at times but otherwise is pleasant and talkative) *Q Meaningful Use (DIS) - VTE *Q VTE Criteria *Q: - Stroke *Q Stroke Criteria *Q: - AMI *Q AMI Criteria *Q:
[2017-01-17] MEDS: Lisinopril 5 MG Tab PO SCH (08:44)
[2017-01-17] MEDS: Aspirin 81 MG Tab.Chew PO SCH (08:44)
[2017-01-17] MEDS: Famotidine 20 MG Tab PO SCH (08:45)
[2017-01-17] MEDS: Venlafaxine 75 MG Cap.ER PO SCH (08:45)
[2017-01-17] MEDS: metFORMIN 500 MG Tab PO SCH (08:56)
[2017-01-17] MEDS ORDERED: Enoxaparin 40 MG/0.4 ML Syringe SUBCUT SCH (09:00)
[2017-01-17] MEDS: Insulin Aspart 100 Units/ML 3 ML Pen SUBCUT SCH ×2 (11:30→11:59)
== END 2017-01-17 11:58 | disposition home or self-care (01) | DRG 639 ==
LOC: JD.ED 11:49 → JD.ICU 16:59 → MERGE 16:59 → JD.MS 01-16 14:08
PROVIDERS: ADMIT Internal Medicine Cardiovascular Disease; ATTEND Internal Medicine Cardiovascular Disease
DX: L08.9 Local infection of the skin and subcutaneous tissue, unspecified (principal); N39.0 Urinary tract infection, site not specified; E11.10 Type 2 diabetes mellitus with ketoacidosis without coma; F42.9 Obsessive-compulsive disorder, unspecified; F32.9 Major depressive disorder, single episode, unspecified; E66.9 Obesity, unspecified; Z68.30 Body mass index [BMI] 30.0-30.9, adult; Z68.31 Body mass index [BMI] 31.0-31.9, adult; E78.5 Hyperlipidemia, unspecified; Z79.899 Other long term (current) drug therapy
CPT/HCPCS: 36415; 36600; 71020; 80053; 81001; 82803; 83605; 83735; 84443; 84484; 85025; 87086; 93005; 96361; 96365; 96366; 96372; 99285; J1817; J7030; J7040; 80048; 80061; 82962; 83036; 87088; 87186; 93010; 97116-GP; 97162-GP; 97165-GO; 97530-GO; 99231; 99239; 99284; A9270-GY; J0696; J1650; J1815-GY; J7042

== ENCOUNTER 2017-05-15 10:15 | Emergency (ER) | payer MEDICAID ==
[2017-05-15] MEDS ORDERED: Insulin Regular, Human 100 Units/ML 3 ML Vial IV STA (10:50)
[2017-05-15] MEDS ORDERED: Sodium Chloride 0.9% 1,000 ML IV ONE ×3 (10:50→13:43)
--- NOTE | 2017-05-15 10:54 | EDM.PDOC ---
ED HPI GENERAL MEDICAL PROBLEM - General Chief Complaint: General Stated Complaint: SOB Time Seen by Provider: 05/15/17 10:39 Source of Information: Reports: Patient History Limitations: Reports: Altered Mental Status - History of Present Illness INITIAL COMMENTS - FREE TEXT/NARRATIVE: The patient is confused and unable to provide much of a meaningful history. Her initial complaint was that of dyspnea, although when I saw her she stated that she was dizzy. She is unable to say for how long. An Accu-Chek was obtained, reading > 400. The patient is a known diabetic. I asked her how often she checks her blood sugars, and she stated usually once a day. I asked her what her usual numbers are, and she was unable to give me an answer. I asked her what medications she takes for her diabetes, and she replied Januvia, then her voice trailed off. She states that she is compliant with her diabetes medications. - Related Data Allergies Allergy/AdvReac Type Severity Reaction Status Date / Time No Known Allergies Allergy Verified 01/15/17 12:26 Home Meds: Home Meds Venlafaxine [Effexor XR] 150 mg PO DAILY 01/15/17 [History] Aspirin 81 mg PO DAILY #30 tab.chew 01/17/17 [Rx] Cephalexin [Keflex] 500 mg PO TID #15 capsule 01/17/17 [Rx] Famotidine [Pepcid] 20 mg PO DAILY #30 tablet 01/17/17 [Rx] Lisinopril [Prinivil] 5 mg PO DAILY #30 tablet 01/17/17 [Rx] Simvastatin [Zocor] 10 mg PO BEDTIME #30 tablet 01/17/17 [Rx] metFORMIN [Glucophage] 1,000 mg PO BIDMEALS #60 tablet 01/17/17 [Rx] Past Medical History Psychiatric History: Reports: Depression, OCD Endocrine/Metabolic History: Reports: Diabetes, Type II, Obesity/BMI 30+ - Past Surgical History HEENT Surgical History: Reports: Tonsillectomy Social & Family History - Family History Family Medical History: Noncontributory - Tobacco Use Smoking Status *Q: Unknown Ever Smoked - Caffeine Use Caffeine Use: Reports: None - Recreational Drug Use Recreational Drug Use: No - Living Situation & Occupation Living situation: Reports: Alone, Single Occupation: Disabled (psychiatric) ED ROS GENERAL - Review of Systems Review Of Systems: Unable To Obtain ED EXAM, GENERAL - Physical Exam Exam: See Below Exam Limited By: No Limitations General Appearance: Alert, WD/WN, Lethargic, Other (Fruity smell vs cat urine vs self-urination.) Eye Exam: Bilateral Eye: Normal Inspection Ears: Normal External Exam, Hearing Grossly Normal Nose: Normal Inspection, No Blood Throat/Mouth: Normal Inspection, Normal Lips, Normal Voice, No Airway Compromise Head: Atraumatic, Normocephalic Neck: Normal Inspection, Full Range of Motion Respiratory/Chest: No Respiratory Distress, Lungs Clear, Normal Breath Sounds, No Accessory Muscle Use Cardiovascular: Normal Peripheral Pulses, No Gallop, No JVD, No Murmur, No Rub, Tachycardia (regular) Peripheral Pulses: 4+: Radial (L), Radial (R) GI/Abdominal: Normal Bowel Sounds, Soft, Non-Tender, No Organomegaly, No Distention, No Abnormal Bruit, No Mass (Female) Exam: Deferred Rectal (Female) Exam: Deferred Back Exam: Normal Inspection, Full Range of Motion, NT Extremities: Normal Range of Motion, Normal Capillary Refill, Other (Left foot appears to be normal, however, the right foot is swollen with erythema on the dorsal as well as plantar aspect. Toes 4 and 5 are particularly swollen with some soft tissue ulcerations at the tips of the toes. Initially, the feet were very dirty, with adherent animal hair.) Neurological: Confused, Slow to Respond, Other (Lethargic. Moves all 4 extremities spontaneously.) Psychiatric: Other (Unable to assess) Skin Exam: Warm, Dry, Intact, Normal Color, No Rash EKG INTERPRETATION EKG Date: 05/15/17 Time: 11:00 Rhythm: Other (Sinus tachycardia) Rate (Beats/Min): 116 [place]: Normal P-Wave: Present QRS: Normal ST-T: Normal QT: Normal Comparison: No Change (01/15/2017) Course - Vital Signs Last Recorded V/S: Last Vital Signs Temp 37.9 C 05/15/17 10:24 Pulse 116 H 05/15/17 10:24 Resp 18 05/15/17 10:24 BP 155/121 H 05/15/17 10:24 Pulse Ox 100 05/15/17 10:24 - Orders/Labs/Meds Orders: Active Orders 24 hr Category Date Time Status Accu Check [Blood Glucose Check, Bedside] [RC] ONETIME Care 05/15/17 10:58 Active EKG Documentation Completion [RC] STAT Care 05/15/17 10:48 Active Insulin Regular, Human [HumuLIN R] 100 unit Med 05/15/17 14:30 Active Sodium Chloride 0.9% [Normal Saline] 99 ml IV TITRATE Sodium Chloride 0.9% [Normal Saline] 1,000 ml Med 05/15/17 13:43 Active IV ONETIME Sodium Chloride 0.9% [Normal Saline] 100 ml Med 05/15/17 12:00 Active IV ASDIRECTED Medication Orders Sodium Chloride (Normal Saline) 100 mls @ 60 mls/hr IV ASDIRECTED CAMMIE Last Admin: 05/15/17 12:41 Dose: 60 mls/hr Sodium Chloride (Normal Saline) 1,000 mls @ 300 mls/hr IV ONETIME ONE Stop: 05/15/17 17:02 Last Admin: 05/15/17 13:47 Dose: 300 mls/hr Insulin Human Regular 100 unit (/ Sodium Chloride) 100 mls @ 3 mls/hr IV TITRATE CAMMIE; 3 UNIT/HR PRN Reason: Protocol Labs: Laboratory Tests 05/15/17 05/15/17 05/15/17 Range/Units 10:48 11:02 11:02 WBC 14.13 H (3.98-10.04) K/mm3 RBC 4.49 (3.98-5.22) M/mm3 Hgb 12.7 (11.2-15.7) gm/L Hct 39.9 (34.1-44.9) % MCV 88.9 (79.4-94.8) fl MCH 28.3 (25.6-32.2) pg MCHC 31.8 L (32.2-35.5) g/dl RDW Std Deviation 43.7 (36.4-46.3) fL Plt Count 406 H (182-369) K/mm3 MPV 10.7 (9.4-12.3) fl Neutrophils % (Manual) 89 H (40-60) % Band Neutrophils % 1 (0-10) % Lymphocytes % (Manual) 8 L (20-40) % Atypical Lymphs % 0 % Monocytes % (Manual) 1 L (2-10) % Eosinophils % (Manual) 1 (0.7-5.8) % Basophils % (Manual) 0 L (0.1-1.2) Platelet Estimate Adequate RBC Morph Comment Normal PT (8.0-13.0) SECONDS INR APTT (22-36) SECONDS D-Dimer, Quantitative (0.19-0.59) mg/L Puncture Site ABG pH (7.35-7.45) ABG pCO2 (35.0-45.0) mmHg ABG pO2 (80.0-100.0) mmHg ABG HCO3 (22.0-26.0) meq/L ABG O2 Saturation (96.0-97.0) % ABG Base Excess (-2-2.0) Marcus Test A-a Gradient mmHg O2 Delivery Device FiO2 (21.00-100.00) % Sodium 124 L (136-145) mEq/L Potassium 4.9 (3.5-5.1) mEq/L Chloride 88 L (98-107) mEq/L Carbon Dioxide 23 (21-32) mEq/L Anion Gap 17.9 H (5-15) BUN 21 H (7-18) mg/dL Creatinine 1.1 H (0.55-1.02) mg/dL Est Cr Clr Drug Dosing 40.33 mL/min Estimated GFR (MDRD) 50 (>60) mL/min BUN/Creatinine Ratio 19.1 H (14-18) Glucose 714 H* (80-115) mg/dL POC Glucose (80-115) mg/dL Lactic Acid (0.4-2.0) mmol/L Calcium 9.0 (8.5-10.1) mg/dL Magnesium 1.7 L (1.8-2.4) mg/dl Total Bilirubin 0.5 (0.2-1.0) mg/dL AST 43 H (15-37) U/L ALT 29 (14-59) U/L Alkaline Phosphatase 245 H (46-116) U/L Troponin I < 0.017 (0.00-0.056) ng/mL Total Protein 8.8 H (6.4-8.2) g/dl Albumin 1.7 L (3.4-5.0) g/dl Globulin 7.1 gm/dL Albumin/Globulin Ratio 0.2 L (1-2) Lipase 141 (73-393) U/L Urine Color (Yellow) Urine Appearance (Clear) Urine pH (5.0-8.0) Ur Specific [place] (1.005-1.030) Urine Protein (Negative) Urine Glucose (UA) (Negative) Urine Ketones (Negative) Urine Occult Blood (Negative) Urine Nitrite (Negative) Urine Bilirubin (Negative) Urine Urobilinogen (0.2-1.0) Ur Leukocyte Esterase (Negative) Urine RBC (0-5) /hpf Urine WBC (0-5) /hpf Ur Epithelial Cells (0-5) /hpf Urine Bacteria (FEW) /hpf Urine Mucus (FEW) /hpf Salicylates (2.8-20) mg/dL Urine Opiates Screen Negative (NEGATIVE) Ur Buprenorphine Scrn Negative (NEGATIVE) Ur Oxycodone Screen Negative (NEGATIVE) Urine Methadone Screen Negative (NEGATIVE) Ur Propoxyphene Screen Negative (NEGATIVE) Acetaminophen 0 L (10-30) ug/mL Ur Barbiturates Screen Negative (NEGATIVE) Ur Tricyclics Screen Negative (NEGATIVE) Ur Phencyclidine Scrn Negative (NEGATIVE) Ur Amphetamine Screen Negative (NEGATIVE) U Methamphetamines Scrn Negative (NEGATIVE) U Benzodiazepines Scrn Negative (NEGATIVE) U Cocaine Metab Screen Negative (NEGATIVE) U Marijuana (THC) Screen Negative (NEGATIVE) Ethyl Alcohol 0.00 (0.00) gm% Ketones (0.0-0.3) mM 05/15/17 05/15/17 05/15/17 Range/Units 11:02 11:02 11:02 WBC (3.98-10.04) K/mm3 RBC (3.98-5.22) M/mm3 Hgb (11.2-15.7) gm/L Hct (34.1-44.9) % MCV (79.4-94.8) fl MCH (25.6-32.2) pg MCHC (32.2-35.5) g/dl RDW Std Deviation (36.4-46.3) fL Plt Count (182-369) K/mm3 MPV (9.4-12.3) fl Neutrophils % (Manual) (40-60) % Band Neutrophils % (0-10) % Lymphocytes % (Manual) (20-40) % Atypical Lymphs % % Monocytes % (Manual) (2-10) % Eosinophils % (Manual) (0.7-5.8) % Basophils % (Manual) (0.1-1.2) Platelet Estimate RBC Morph Comment PT 10.9 (8.0-13.0) SECONDS INR 1.02 APTT 27 (22-36) SECONDS D-Dimer, Quantitative 14.70 H (0.19-0.59) mg/L Puncture Site ABG pH (7.35-7.45) ABG pCO2 (35.0-45.0) mmHg ABG pO2 (80.0-100.0) mmHg ABG HCO3 (22.0-26.0) meq/L ABG O2 Saturation (96.0-97.0) % ABG Base Excess (-2-2.0) Marcus Test A-a Gradient mmHg O2 Delivery Device FiO2 (21.00-100.00) % Sodium (136-145) mEq/L Potassium (3.5-5.1) mEq/L Chloride (98-107) mEq/L Carbon Dioxide (21-32) mEq/L Anion Gap (5-15) BUN (7-18) mg/dL Creatinine (0.55-1.02) mg/dL Est Cr Clr Drug Dosing mL/min Estimated GFR (MDRD) (>60) mL/min BUN/Creatinine Ratio (14-18) Glucose (80-115) mg/dL POC Glucose (80-115) mg/dL Lactic Acid 3.8 H (0.4-2.0) mmol/L Calcium (8.5-10.1) mg/dL Magnesium (1.8-2.4) mg/dl Total Bilirubin (0.2-1.0) mg/dL AST (15-37) U/L ALT (14-59) U/L Alkaline Phosphatase (46-116) U/L Troponin I (0.00-0.056) ng/mL Total Protein (6.4-8.2) g/dl Albumin (3.4-5.0) g/dl Globulin gm/dL Albumin/Globulin Ratio (1-2) Lipase (73-393) U/L Urine Color (Yellow) Urine Appearance (Clear) Urine pH (5.0-8.0) Ur Specific [place] (1.005-1.030) Urine Protein (Negative) Urine Glucose (UA) (Negative) Urine Ketones (Negative) Urine Occult Blood (Negative) Urine Nitrite (Negative) Urine Bilirubin (Negative) Urine Urobilinogen (0.2-1.0) Ur Leukocyte Esterase (Negative) Urine RBC (0-5) /hpf Urine WBC (0-5) /hpf Ur Epithelial Cells (0-5) /hpf Urine Bacteria (FEW) /hpf Urine Mucus (FEW) /hpf Salicylates 0.9 L (2.8-20) mg/dL Urine Opiates Screen (NEGATIVE) Ur Buprenorphine Scrn (NEGATIVE) Ur Oxycodone Screen (NEGATIVE) Urine Methadone Screen (NEGATIVE) Ur Propoxyphene Screen (NEGATIVE) Acetaminophen (10-30) ug/mL Ur Barbiturates Screen (NEGATIVE) Ur Tricyclics Screen (NEGATIVE) Ur Phencyclidine Scrn (NEGATIVE) Ur Amphetamine Screen (NEGATIVE) U Methamphetamines Scrn (NEGATIVE) U Benzodiazepines Scrn (NEGATIVE) U Cocaine Metab Screen (NEGATIVE) U Marijuana (THC) Screen (NEGATIVE) Ethyl Alcohol (0.00) gm% Ketones (0.0-0.3) mM 05/15/17 05/15/17 05/15/17 Range/Units 11:02 11:28 11:40 WBC (3.98-10.04) K/mm3 RBC (3.98-5.22) M/mm3 Hgb (11.2-15.7) gm/L Hct (34.1-44.9) % MCV (79.4-94.8) fl MCH (25.6-32.2) pg MCHC (32.2-35.5) g/dl RDW Std Deviation (36.4-46.3) fL Plt Count (182-369) K/mm3 MPV (9.4-12.3) fl Neutrophils % (Manual) (40-60) % Band Neutrophils % (0-10) % Lymphocytes % (Manual) (20-40) % Atypical Lymphs % % Monocytes % (Manual) (2-10) % Eosinophils % (Manual) (0.7-5.8) % Basophils % (Manual) (0.1-1.2) Platelet Estimate RBC Morph Comment PT (8.0-13.0) SECONDS INR APTT (22-36) SECONDS D-Dimer, Quantitative (0.19-0.59) mg/L Puncture Site Rt radial ABG pH 7.52 H (7.35-7.45) ABG pCO2 26.7 L (35.0-45.0) mmHg ABG pO2 61.0 L (80.0-100.0) mmHg ABG HCO3 21.6 L (22.0-26.0) meq/L ABG O2 Saturation 94.8 L (96.0-97.0) % ABG Base Excess 0.1 (-2-2.0) Marcus Test Positive A-a Gradient 40 mmHg O2 Delivery Device Room air FiO2 21.00 (21.00-100.00) % Sodium (136-145) mEq/L Potassium (3.5-5.1) mEq/L Chloride (98-107) mEq/L Carbon Dioxide (21-32) mEq/L Anion Gap (5-15) BUN (7-18) mg/dL Creatinine (0.55-1.02) mg/dL Est Cr Clr Drug Dosing mL/min Estimated GFR (MDRD) (>60) mL/min BUN/Creatinine Ratio (14-18) Glucose (80-115) mg/dL POC Glucose (80-115) mg/dL Lactic Acid (0.4-2.0) mmol/L Calcium (8.5-10.1) mg/dL Magnesium (1.8-2.4) mg/dl Total Bilirubin (0.2-1.0) mg/dL AST (15-37) U/L ALT (14-59) U/L Alkaline Phosphatase (46-116) U/L Troponin I (0.00-0.056) ng/mL Total Protein (6.4-8.2) g/dl Albumin (3.4-5.0) g/dl Globulin gm/dL Albumin/Globulin Ratio (1-2) Lipase (73-393) U/L Urine Color Light yellow (Yellow) Urine Appearance Clear (Clear) Urine pH 6.0 (5.0-8.0) Ur Specific [place] 1.010 (1.005-1.030) Urine Protein Trace H (Negative) Urine Glucose (UA) 2+ H (Negative) Urine Ketones Negative (Negative) Urine Occult Blood 2+ H (Negative) Urine Nitrite Negative (Negative) Urine Bilirubin Negative (Negative) Urine Urobilinogen 0.2 (0.2-1.0) Ur Leukocyte Esterase Negative (Negative) Urine RBC 5-10 H (0-5) /hpf Urine WBC 0-5 (0-5) /hpf Ur Epithelial Cells 0-5 (0-5) /hpf Urine Bacteria Few (FEW) /hpf Urine Mucus Not seen (FEW) /hpf Salicylates (2.8-20) mg/dL Urine Opiates Screen (NEGATIVE) Ur Buprenorphine Scrn (NEGATIVE) Ur Oxycodone Screen (NEGATIVE) Urine Methadone Screen (NEGATIVE) Ur Propoxyphene Screen (NEGATIVE) Acetaminophen (10-30) ug/mL Ur Barbiturates Screen (NEGATIVE) Ur Tricyclics Screen (NEGATIVE) Ur Phencyclidine Scrn (NEGATIVE) Ur Amphetamine Screen (NEGATIVE) U Methamphetamines Scrn (NEGATIVE) U Benzodiazepines Scrn (NEGATIVE) U Cocaine Metab Screen (NEGATIVE) U Marijuana (THC) Screen (NEGATIVE) Ethyl Alcohol (0.00) gm% Ketones 0.5 (0.0-0.3) mM 05/15/17 05/15/17 05/15/17 Range/Units 12:50 13:52 14:20 WBC (3.98-10.04) K/mm3 RBC (3.98-5.22) M/mm3 Hgb (11.2-15.7) gm/L Hct (34.1-44.9) % MCV (79.4-94.8) fl MCH (25.6-32.2) pg MCHC (32.2-35.5) g/dl RDW Std Deviation (36.4-46.3) fL Plt Count (182-369) K/mm3 MPV (9.4-12.3) fl Neutrophils % (Manual) (40-60) % Band Neutrophils % (0-10) % Lymphocytes % (Manual) (20-40) % Atypical Lymphs % % Monocytes % (Manual) (2-10) % Eosinophils % (Manual) (0.7-5.8) % Basophils % (Manual) (0.1-1.2) Platelet Estimate RBC Morph Comment PT (8.0-13.0) SECONDS INR APTT (22-36) SECONDS D-Dimer, Quantitative (0.19-0.59) mg/L Puncture Site ABG pH (7.35-7.45) ABG pCO2 (35.0-45.0) mmHg ABG pO2 (80.0-100.0) mmHg ABG HCO3 (22.0-26.0) meq/L ABG O2 Saturation (96.0-97.0) % ABG Base Excess (-2-2.0) Marcus Test A-a Gradient mmHg O2 Delivery Device FiO2 (21.00-100.00) % Sodium 130 L (136-145) mEq/L Potassium 4.1 (3.5-5.1) mEq/L Chloride 95 L (98-107) mEq/L Carbon Dioxide 25 (21-32) mEq/L Anion Gap 14.1 (5-15) BUN 20 H (7-18) mg/dL Creatinine 1.1 H (0.55-1.02) mg/dL Est Cr Clr Drug Dosing 40.33 mL/min Estimated GFR (MDRD) 50 (>60) mL/min BUN/Creatinine Ratio 18.2 H (14-18) Glucose 491 H (80-115) mg/dL POC Glucose 364 H 284 H (80-115) mg/dL Lactic Acid (0.4-2.0) mmol/L Calcium 8.3 L (8.5-10.1) mg/dL Magnesium (1.8-2.4) mg/dl Total Bilirubin (0.2-1.0) mg/dL AST (15-37) U/L ALT (14-59) U/L Alkaline Phosphatase (46-116) U/L Troponin I (0.00-0.056) ng/mL Total Protein (6.4-8.2) g/dl Albumin (3.4-5.0) g/dl Globulin gm/dL Albumin/Globulin Ratio (1-2) Lipase (73-393) U/L Urine Color (Yellow) Urine Appearance (Clear) Urine pH (5.0-8.0) Ur Specific [place] (1.005-1.030) Urine Protein (Negative) Urine Glucose (UA) (Negative) Urine Ketones (Negative) Urine Occult Blood (Negative) Urine Nitrite (Negative) Urine Bilirubin (Negative) Urine Urobilinogen (0.2-1.0) Ur Leukocyte Esterase (Negative) Urine RBC (0-5) /hpf Urine WBC (0-5) /hpf Ur Epithelial Cells (0-5) /hpf Urine Bacteria (FEW) /hpf Urine Mucus (FEW) /hpf Salicylates (2.8-20) mg/dL Urine Opiates Screen (NEGATIVE) Ur Buprenorphine Scrn (NEGATIVE) Ur Oxycodone Screen (NEGATIVE) Urine Methadone Screen (NEGATIVE) Ur Propoxyphene Screen (NEGATIVE) Acetaminophen (10-30) ug/mL Ur Barbiturates Screen (NEGATIVE) Ur Tricyclics Screen (NEGATIVE) Ur Phencyclidine Scrn (NEGATIVE) Ur Amphetamine Screen (NEGATIVE) U Methamphetamines Scrn (NEGATIVE) U Benzodiazepines Scrn (NEGATIVE) U Cocaine Metab Screen (NEGATIVE) U Marijuana (THC) Screen (NEGATIVE) Ethyl Alcohol (0.00) gm% Ketones (0.0-0.3) mM Meds: Medications Generic Name Dose Route Start Last Admin Trade Name Freq PRN Reason Stop Dose Admin Sodium Chloride 100 mls @ 60 mls/hr 05/15/17 12:00 05/15/17 12:41 Normal Saline IV 60 mls/hr ASDIRECTED CAMMIE Administration Sodium Chloride 1,000 mls @ 300 mls/hr 05/15/17 13:43 05/15/17 13:47 Normal Saline IV 05/15/17 17:02 300 mls/hr ONETIME ONE Administration Insulin Human Regular 100 unit 100 mls @ 3 mls/hr 05/15/17 14:30 / Sodium Chloride IV TITRATE CAMMIE Protocol 3 UNIT/HR Discontinued Medications Generic Name Dose Route Start Last Admin Trade Name Freq PRN Reason Stop Dose Admin Enoxaparin Sodium 85 mg 05/15/17 11:53 05/15/17 12:02 Lovenox SUBCUT 05/15/17 11:54 85 mg ONETIME STA Administration Insulin Human Regular 100 unit 100 mls @ 8.61 mls/hr 05/15/17 11:00 05/15/17 13:28 / Sodium Chloride IV 0.06 units/kg/hr TITRATE CAMMIE 6 mls/hr Protocol Titration 0.1 UNITS/KG/HR Sodium Chloride 1,000 mls @ 999 mls/hr 05/15/17 10:50 05/15/17 11:23 Normal Saline IV 05/15/17 11:50 999 mls/hr ONETIME ONE Administration Magnesium Sulfate 2 gm/ Premix 50 mls @ 50 mls/hr 05/15/17 12:07 05/15/17 12: 53 IV 05/15/17 13:06 50 mls/hr ONETIME ONE Administration Sodium Chloride 1,000 mls @ 999 mls/hr 05/15/17 12:31 05/15/17 12:40 Normal Saline IV 05/15/17 13:31 999 mls/hr ONETIME ONE Administration Sodium Chloride Confirm 05/15/17 12:38 05/15/17 12:44 Normal Saline Administered 05/15/17 12:39 Not Given Dose 1,000 mls @ as directed .ROUTE .STK-MED ONE Ceftriaxone Sodium 1 gm/ 100 mls @ 200 mls/hr 05/15/17 13:13 05/15/17 13:48 Sodium Chloride IV 05/15/17 13:42 200 mls/hr ONETIME ONE Administration Insulin Human Regular 5 unit 05/15/17 10:50 05/15/17 11:22 Humulin R IV 05/15/17 10:51 5 units ONETIME STA Administration Iopamidol 100 ml 05/15/17 11:59 05/15/17 12:41 Isovue-370 (76%) IVPUSH 05/15/17 12:00 100 ml ONETIME ONE Administration Sodium Chloride 10 ml 05/15/17 11:59 05/15/17 12:41 Saline Flush FLUSH 05/15/17 12:00 10 ml ONETIME ONE Administration - Re-Assessments/Exams Free Text/Narrative Re-Assessment/Exam: 05/15/17 10:52 The patient is unable to provide any meaningful history. She smells a bit fruity , and her Accu-Chek is > 400, concerning for DKA, but she also has cat hair on her clothes, and the odor that is smelt could be urine. I have ordered an extensive workup, and will initiate IV fluid, SQ insulin, and an insulin drip. 05/15/17 11:30 Portable chest radiograph appears to be grossly normal. Cardiac silhouette is within normal limits. No pulmonary vascular congestion. No pleural effusions. No focal infiltrate. No pneumothorax. Formal read per the Radiologist pending. 05/15/17 11:37 The patient's ABG represents an acute respiratory alkalosis vs mixed primary respiratory alkalosis with secondary metabolic acidosis. 05/15/17 11:55 Notified that the patient's D-dimer is essentially elevated at 14.70. As above, the patient's ABG shows a respiratory alkalosis. She is tachycardic. The patient has a pulmonary embolus until proven otherwise. I have ordered a CT angiogram of the chest, but have also ordered Lovenox at 1 mg/kg SQ. 05/15/17 12:09 The patient's magnesium level has returned low at 1.7. I have ordered a 2 g magnesium-rider. The patient's sodium returns low at 124, but corrects for the blood sugar to 132. The patient's blood glucose returned as substantially elevated at 714, but ketones are within normal limits. The patient is not in DKA, but is in a hyperglycemic hyperosmolar state. We will continue the IV fluid and insulin drip , presently. 05/15/17 13:09 CT angiogram of the chest is read by Dr. Black as: 1. No findings of pulmonary embolism within the main or segmental branches. 2. Nothing acute is appreciated on CT study of the chest. 3. Fatty infiltration is noted within the liver. I will start the patient on Rocephin for what appears to be cellulitis and some ulcers of the distal toes on the right foot. 05/15/17 13:[address] Muñiz at 13:15. Before accepting the patient for admission, she would like to discuss the case with high school social studies teacher, to see if it is possible to get the patient placed. 05/15/17 13:27 The patient's blood glucose dropped by 223 over 1 hour 48 minutes. I have asked the nurse to decrease the insulin drip rate from 8.6 units/hr to 6 units/hr. 05/15/17 14:12 Dr. Muñiz requested x-rays of the right foot to evaluate for osteomyelitis prior to admission. These have been ordered. 05/15/17 14:57 Two-view radiograph of the right foot is read by Dr. Black as: 1. Osteomyelitis within the third and fourth toes as well as possible distal second toe. 2. Soft tissue swelling and soft tissue air. 05/15/17 15:[address] Fall at 15:02. He believes that we should transfer the patient to [facility]. He is going off-call this evening and would not be able to address the foot for about 5 days, which would exceed the 96 hour expected admission cut off for this facility. 05/15/17 15:20 [facility] contacted at 15:07. Case discussed with Dr. Velazquez, Emergency Physician at [facility], at 15:15. He accepts the patient for transfer to their emergency department. The patient will be transported by ground. Departure - Departure Time of Disposition: 15:20 Disposition: DC/Tfer to [facility] Condition: Fair Clinical Impression: Uncontrolled type 2 DM with hyperosmolar nonketotic hyperglycemia, Osteomyelitis of right foot, Hypomagnesemia, Lactic acidosis - Discharge Information - My Orders Last 24 Hours: My Active Orders 05/15/17 10:48 EKG Documentation Completion [RC] STAT 05/15/17 10:58 Accu Check [Blood Glucose Check, Bedside] [RC] ONETIME 05/15/17 12:00 Sodium Chloride 0.9% [Normal Saline] 100 ml IV ASDIRECTED 05/15/17 13:43 Sodium Chloride 0.9% [Normal Saline] 1,000 ml IV ONETIME 05/15/17 14:30 Insulin Regular, Human [HumuLIN R] 100 unit Sodium Chloride 0.9% [Normal Saline] 99 ml IV TITRATE - Assessment/Plan Last 24 Hours: My Active Orders 05/15/17 10:48 EKG Documentation Completion [RC] STAT 05/15/17 10:58 Accu Check [Blood Glucose Check, Bedside] [RC] ONETIME 05/15/17 12:00 Sodium Chloride 0.9% [Normal Saline] 100 ml IV ASDIRECTED 05/15/17 13:43 Sodium Chloride 0.9% [Normal Saline] 1,000 ml IV ONETIME 05/15/17 14:30 Insulin Regular, Human [HumuLIN R] 100 unit Sodium Chloride 0.9% [Normal Saline] 99 ml IV TITRATE
[2017-05-15 11:46] LABS: ACETAMINOPHEN 0 ug/mL (10-30)
--- NOTE | 2017-05-15 11:51 | CR ---
Chest: Portable view of the chest was obtained. Comparison: No prior chest x-ray. Heart size and mediastinum are normal for portable technique. Lungs are clear. Bony structures are grossly intact. Impression: 1. Nothing acute is identified on portable chest x-ray. Diagnostic code #1
[2017-05-15] MEDS ORDERED: Enoxaparin 100 MG/1 ML Syringe SUBCUT STA (11:53)
[2017-05-15] MEDS ORDERED: Iopamidol 755 Mg/ML 100 ML Bottle IVPUSH ONE (11:59)
[2017-05-15] MEDS ORDERED: Sodium Chloride 0.9% 100 ML IV SCH (12:00)
[2017-05-15] MEDS: Sodium Chloride 0.9% 10 ML Syringe FLUSH ONE ×2 (12:05→12:41)
[2017-05-15] MEDS ORDERED: Magnesium Sulfate/Water 2 GM in Premix Bag 1 BAG IV ONE (12:07)
[2017-05-15] MEDS ORDERED: Sodium Chloride 0.9% 1,000 ML ONE (12:38)
--- NOTE | 2017-05-15 13:03 | CT ---
CT chest Technique: Multiple axial sections were obtained through the chest. Intravenous contrast was utilized. Study has been performed as a pulmonary angiogram protocol. Findings: Pulmonary arteries are not optimally opacified. No filling defects are seen within the main or segmental branches to indicate pulmonary embolism. Smaller subsegmental pulmonary emboli could be missed. Aorta appears within normal limits. Mediastinum and hilar regions show no adenopathy or mass. No pericardial thickening is seen. Diffuse fatty infiltration is noted within the liver. No acute parenchymal opacities are seen within either lung. No pleural effusions are seen. Bone window settings were reviewed which appear within normal limits for the patient's age. Impression: 1. No findings of pulmonary embolism within the main or segmental branches. 2. Nothing acute is appreciated on CT study of the chest. 3. Fatty infiltration is noted within the liver. Diagnostic code #2
[2017-05-15] MEDS ORDERED: cefTRIAXone 1 GM in Sodium Chloride 0.9% 100 ML IV ONE (13:13)
--- NOTE | 2017-05-15 14:31 | CR ---
Right foot: Two views of the right foot were obtained. Comparison: No prior foot exam. Diffuse soft tissue swelling is seen containing air. Destruction is noted of portions of the third and fourth digits as well as distal phalanx of the second toe. Additional lucencies are seen within the head of this third and fourth metatarsals. Findings are felt compatible with severe osteomyelitis. Plantar spur is noted. Impression: 1. Osteomyelitis within the third and fourth toes as well as possible distal second toe. 2. Soft tissue swelling and soft tissue air. Diagnostic code #5
== END 2017-05-15 15:47 ==
LOC: JD.ED 10:15
DX: E11.00 Type 2 diabetes mellitus with hyperosmolarity without nonketotic hyperglycemic-hyperosmolar coma (NKHHC) (principal); E11.65 Type 2 diabetes mellitus with hyperglycemia; M86.8X7 Other osteomyelitis, ankle and foot; E83.42 Hypomagnesemia; Z79.84 Long term (current) use of oral hypoglycemic drugs; Z79.82 Long term (current) use of aspirin
CPT/HCPCS: 36415; 36600; 71045; 71275; 73620; 80048; 80053; 80306; 81001; 82009; 82803; 82962; 83605; 83690; 83735; 84484; 85025; 85379; 85610; 85730; 87075; 87205; 93005; 96361; 96365; 96366; 96368; 96372; 99285; G0480; J0696; J1650; J7030; J7040; J7050; Q9967; 87070; 93010; J3475

== ENCOUNTER 2022-08-01 07:12 | Day surgery (SDC) | payer MEDICARE, MEDICAID ==
[~2022-08-01 07:12] MED LIST: Lactated Ringers 1,000 ML IV SCH; Lidocaine 1% 2 ML ONE; Lidocaine 1%/Sod Bicarbonate in NS 8.4% 1 ML Syringe IDERM PRN; Midazolam 1 MG/ML 2 ML SDV ONE; Propofol 200 MG/20 ML SDV ONE; Sodium Chloride 0.9% 10 ML Syringe FLUSH PRN; Sodium Chloride 0.9% 10 ML Syringe FLUSH SCH; fentaNYL 100 MCG/2 ML SDV ONE
[2022-08-01] MEDS ORDERED: Propofol 200 MG/20 ML SDV ONE ×2 (08:26→09:03)
== END 2022-08-01 10:39 | disposition home or self-care (01) ==
LOC: JD.SDS 07:12
PROVIDERS: ATTEND Surgery
DX: D12.3 Benign neoplasm of transverse colon (principal); K29.50 Unspecified chronic gastritis without bleeding; K44.9 Diaphragmatic hernia without obstruction or gangrene; K29.70 Gastritis, unspecified, without bleeding; Q43.8 Other specified congenital malformations of intestine; K21.9 Gastro-esophageal reflux disease without esophagitis; D64.9 Anemia, unspecified; F42.9 Obsessive-compulsive disorder, unspecified; F21 Schizotypal disorder; E66.9 Obesity, unspecified; E11.9 Type 2 diabetes mellitus without complications; E03.9 Hypothyroidism, unspecified; F41.9 Anxiety disorder, unspecified; I10 Essential (primary) hypertension; F32.A Depression, unspecified; Z79.899 Other long term (current) drug therapy; Z79.4 Long term (current) use of insulin; Z68.39 Body mass index [BMI] 39.0-39.9, adult
CPT/HCPCS: 43239; J2250; J2704; J3010; J7120; J3490

== ENCOUNTER 2023-01-16 08:25 | Day surgery (SDC) | payer MEDICARE, MEDICAID ==
[~2023-01-16 08:25] MED LIST changes: -Lactated Ringers 1,000 ML IV SCH; -Lidocaine 1% 2 ML ONE; -Lidocaine 1%/Sod Bicarbonate in NS 8.4% 1 ML Syringe IDERM PRN; -Midazolam 1 MG/ML 2 ML SDV ONE; -Propofol 200 MG/20 ML SDV ONE; -fentaNYL 100 MCG/2 ML SDV ONE
[2023-01-16] MEDS: Lactated Ringers 1,000 ML IV SCH ×2 (09:05→10:51)
[2023-01-16] MEDS ORDERED: fentaNYL 100 MCG/2 ML SDV ONE (12:01)
[2023-01-16] MEDS ORDERED: Propofol 200 MG/20 ML SDV ONE (12:01)
[2023-01-16] MEDS ORDERED: Lidocaine 2% 5 ML SDV ONE (12:11)
== END 2023-01-16 14:35 | disposition home or self-care (01) ==
LOC: JD.SDS 08:25
PROVIDERS: ATTEND Surgery
DX: D50.9 Iron deficiency anemia, unspecified (principal); K29.80 Duodenitis without bleeding; K29.50 Unspecified chronic gastritis without bleeding; D12.0 Benign neoplasm of cecum; D12.5 Benign neoplasm of sigmoid colon; K21.9 Gastro-esophageal reflux disease without esophagitis; F41.9 Anxiety disorder, unspecified; I10 Essential (primary) hypertension; E03.9 Hypothyroidism, unspecified; G47.00 Insomnia, unspecified; E11.9 Type 2 diabetes mellitus without complications; F32.1 Major depressive disorder, single episode, moderate; Z79.82 Long term (current) use of aspirin; Z79.890 Hormone replacement therapy; Z79.84 Long term (current) use of oral hypoglycemic drugs; Z79.899 Other long term (current) drug therapy; Z86.010 Personal history of colon polyps
CPT/HCPCS: 43239; 45380; 88305; 88342; J2704; J3010; J7120; 00813; J3490

== ENCOUNTER → 2024-04-22 | Day surgery (SDC) | payer MEDICARE, MEDICAID ==
[~2024-04-22] MED LIST changes: +Lidocaine 1% 0 ML ONE; +Propofol 200 MG/20 ML SDV ONE
[2024-04-22] MEDS: Lactated Ringers 1,000 ML IV SCH (07:30)
== END ==
LOC: JD.SDS 06:58
PROVIDERS: ATTEND Surgery
DX: Z12.11 Encounter for screening for malignant neoplasm of colon (principal); I10 Essential (primary) hypertension; E11.9 Type 2 diabetes mellitus without complications; Z53.8 Procedure and treatment not carried out for other reasons; E03.9 Hypothyroidism, unspecified; Z79.82 Long term (current) use of aspirin; Z79.84 Long term (current) use of oral hypoglycemic drugs; Z79.899 Other long term (current) drug therapy
CPT/HCPCS: J2704; J3490; J7120

== ENCOUNTER 2024-09-16 09:45 | Day surgery (SDC) | payer MEDICARE, MEDICAID ==
[~2024-09-16 09:45] MED LIST changes: -Lidocaine 1% 0 ML ONE; -Propofol 200 MG/20 ML SDV ONE
[2024-09-16] MEDS: Lactated Ringers 1,000 ML IV SCH (10:30)
[2024-09-16] MEDS ORDERED: Propofol 200 MG/20 ML SDV ONE (10:55)
== END 2024-09-16 13:40 | disposition home or self-care (01) ==
LOC: JD.SDS 09:45
PROVIDERS: ATTEND Surgery
DX: D12.2 Benign neoplasm of ascending colon (principal); D12.0 Benign neoplasm of cecum; I10 Essential (primary) hypertension; E11.9 Type 2 diabetes mellitus without complications; D64.9 Anemia, unspecified; E03.9 Hypothyroidism, unspecified; E78.5 Hyperlipidemia, unspecified; K21.9 Gastro-esophageal reflux disease without esophagitis; Z86.0101 Personal history of adenomatous and serrated colon polyps; Z79.4 Long term (current) use of insulin; Z79.890 Hormone replacement therapy; Z79.82 Long term (current) use of aspirin; Z79.85 Long-term (current) use of injectable non-insulin antidiabetic drugs; Z79.899 Other long term (current) drug therapy
CPT/HCPCS: 45380; J2704; J7120; 00811; 88305; 99100